=== PATIENT | female | born 2000 | race Two or more races ===

== ENCOUNTER 2025-03-28 22:51 | Emergency (ER) | payer MEDICAID, SELFPAY ==
[2025-03-28 22:54] VITALS: BMI 39.1
[2025-03-29 00:46] VITALS: BP 122/87; PULSE 80; RESP 16; TEMP 36.7; O2SAT 97
[2025-03-29] MEDS: FAMOTIDINE 20 MG TABLET 40 MG PO (01:03)
[2025-03-29] MEDS: MG HYD/AL HYD/SIME (Maalox Reg) SUSP 30 ML UDC PO (01:03)
[2025-03-29] MEDS: ONDANSETRON ODT 4 MG TABRAP PO (01:04)
--- NOTE | 2025-03-29 01:22 | EDNOTE_ITS ---
ED Abdominal Pain RME/HPI General Chief Complaint: Abdominal Pain Stated complaint: UPPER ABD PAIN RADIATING TO BACK Time seen by provider: 03/29/25 00:51 Arrival date/time: 03/28/25 22:51 24F with no significant PMH presents to ED with 2 days of burning epigastric pain that radiates to throat and N/V. Limitations: no limitations Related Data Previous Rx's ?Medication ?Instructions ?Recorded ondansetron 4 mg disintegrating 4 mg PO Q8H PRN nausea and 03/29/25 tablet vomiting #14 tabs Allergies Allergy/AdvReac Type Severity Reaction Status Date / Time No Known Allergies Allergy Verified 03/28/25 22:52 Review of Systems Review of Systems Systems Reviewed: All systems reviewed, normal except as documented Constitutional Constitutional: Reports system reviewed and no additional complaints, except as documented, Denies fever(s) and Denies headache(s) ENT Ears, Nose, Mouth, and Throat: Denies disequilibrium and Denies headache(s) Cardiovascular Cardiovascular: Reports system reviewed and no additional complaints, except as documented, Denies chest pain and Denies dyspnea Respiratory Respiratory: Reports system reviewed and no additional complaints, except as documented, Denies cough and Denies dyspnea Gastrointestinal Gastrointestinal: Reports system reviewed and no additional complaints, except as documented, Reports as per HPI, Reports abdominal pain, Reports nausea and Reports vomiting Neurologic Neurologic: Reports system reviewed and no additional complaints, except as documented, Denies confusion, Denies disequilibrium and Denies headache(s) Psychiatric Psychiatric: Denies confusion Past Medical History Social History SMOKING STATUS: Never smoker ED Exam General Limitations: Present no limitations General appearance: Present alert and in no apparent distress Head Head exam: Present atraumatic Eye Eye exam: Present normal appearance, PERRL and EOMI ENT ENT exam: Present normal exam, normal oropharynx and mucous membranes moist Neck Neck exam: Present normal inspection, full ROM and trachea midline Chest Chest inspection: Present normal inspection and symmetric chest wall rise Respiratory Respiratory exam: Present normal lung sounds bilaterally Cardiovascular Cardiovascular exam: Present regular rate, normal rhythm and normal heart sounds Abdominal Exam Abdominal exam: Present soft and normal bowel sounds Extremities Exam Extremities exam: Present normal inspection and full ROM Back Exam Back exam: Present normal inspection and full ROM Neurological Exam Neurological exam: Present alert, oriented X3 and CN II-XII intact Psychiatric Psychiatric exam: Present normal affect and normal mood Skin Skin exam: Present warm, dry, intact and normal color Course Quality Measures none Orders Category Date Time Status Famotidine [Pepcid] Med 03/29/25 00:52 Discontinued 40 mg PO X1 ONE Ondansetron Odt [Zofran Odt] Med 03/29/25 00:52 Discontinued 4 mg PO X1 ONE mg Hyd/Al Hyd/Ulises Susp [Maalox Susp] Med 03/29/25 00:52 Discontinued 30 ml PO X1 ONE Vital Signs Vital signs: Vital Signs Temperature 98.0 F 03/29/25 00:46 Pulse Rate 80 03/29/25 00:46 Respiratory Rate 16 03/29/25 00:46 Blood Pressure 122/87 H 03/29/25 00:46 Pulse Oximetry (%) 97 03/29/25 00:46 Oxygen Delivery Method Room Air 03/29/25 00:46 O2 at 97% on RA and WNLs Abdominal Pain MDM MDM Narrative MDM Narrative:: 24F with no significant PMH presents to ED with 2 days of burning epigastric pain that radiates to throat and N/V. Physical exam reveals no ab tenderness. Patient is afebrile, calm, and alert. GI cocktail relieved symptoms. Patient data External records reviewed:: None Clinical information provided by:: patient Social determinants that could affect healthcare access:: none Patient has the following chronic illnesses:: none How is presenting disease/condition affected by chronic disease/condition?: no chronic disease Evaluation data The following diagnostics were reviewed and interpreted by me:: other (specify) (none) Lab and/or radiology exams considered but not ordered:: not ordered Interpretation Summary: n/a Medications / Prescriptions Medications or Prescriptions considered but not ordered:: ordered Medication administrations:: Medication Administration History Discontinued Medications Al Hydrox/Mg Hydrox/Simethicone (Mg Hyd/Al Hyd/Ulises (Maalox Reg) Susp 30 Ml Udc) 30 ml PO X1 ONE Stop: 03/29/25 00:53 Last Admin: 03/29/25 01:03 Dose: 30 ml Documented By: MAGDIEL Famotidine (Famotidine 20 Mg Tablet) 40 mg PO X1 ONE Stop: 03/29/25 00:53 Last Admin: 03/29/25 01:03 Dose: 40 mg Documented By: MAGDIEL Ondansetron HCl (Ondansetron Odt 4 Mg Tabrap) 4 mg PO X1 ONE; Protocol Stop: 03/29/25 00:53 Last Admin: 03/29/25 01:04 Dose: 4 mg Documented By: CB above Consultations Consultation(s) initiated? (list below): No Diagnosis Differential diagnosis abdominal pain: abdominal pain, acute appendicitis, calculus of kidney, constipation, diverticulitis, endometriosis, gastroenteritis, pancreatitis, small bowel obstruction and other (GERD) Most likely diagnosis given after review of the tests above:: GERD Admission Indicated Admission indicated?: not indicated Admission Request Was there a request for admission?: No Disposition Plan Disposition Plan: Discharge Discharge Attestation Discharge Attestation: The patient and all family members were given an opportunity to ask questions and understood the discharge instructions. Discharge instructions specifically effects, indications for sooner follow up or return to the emergency department, and the expected course of current diagnosis. Patient condition: Stable Discharge Plan Plan Patient Disposition: HOME (Self Care) Discharge Disposition comment: Stable Prescriptions/Referrals Prescriptions/Med Rec: New ondansetron 4 mg tablet,disintegrating 4 mg PO Q8H PRN (Reason: nausea and vomiting) Qty: 14 0RF Referrals: Pedro Parks MD [Primary Care Provider] - In 1 week Problem List Clinical Impression: GERD (gastroesophageal reflux disease) Patient/Caregiver Discharge Instructions Education Materials: ED GERD (Adult) Additional Instructions: Please follow-up with PCP within 24-48 hours and return immediately if symptoms worsen. Can try OTC TUMs and/or Pepcid. Print Language: Ukrainian Stand Alone Forms: Patient Portal Info Letter CARLOS/TEJINDER Supervising Physician CARLOS/TEJINDER Supervising Physician: Dr. Harden
[2025-03-29 01:38] VITALS: RESP 18
== END 2025-03-29 01:39 | disposition home or self-care (01) ==
PROVIDERS: Emergency Provider Emergency Medicine; PCP Family Medicine
DX: K21.9 Gastro-esophageal reflux disease without esophagitis (principal)
CPT/HCPCS: 99282; Q0162; A9270